=== PATIENT | male | born 1980 | race Caucasian/White ===

== ENCOUNTER 2017-06-18 02:02 | Emergency (ER) | payer OTHER ==
[2017-06-18] MEDS ORDERED: Ketorolac 60 MG/2 ML SDV IM ONE (02:22)
--- NOTE | 2017-06-18 02:27 | EDM.PDOC ---
ED HPI GENERAL MEDICAL PROBLEM - General Stated Complaint: LEFT SHOULDER PAIN Time Seen by Provider: 06/18/17 02:22 Source of Information: Reports: Patient - History of Present Illness INITIAL COMMENTS - FREE TEXT/NARRATIVE: HISTORY AND PHYSICAL: History of present illness: [Patient presents with a history of shoulder pain He complains of actually more of a nerve type pain numbness tingling down to his fingertips on his left arm since been present for one year's unable to sleep due to the discomfort caused by this at this time also has some back and shoulder pain symptoms are worsened with rotation of his arm he denies any injury or trauma Is been able to sleep over the last week due to the pain He has failed [id number] symptomatic therapies, he has been treated by local chiropractor over the last year further symptomology. He has also had MRI performed at [facility] and this was negative for any findings per patient however he did mention that he was referred to the neurology group out of [place] as well which seems there may have been some findings. I recommended he establish primary care provider and either repeat the MRI or get the copy of the MRI and redirected As for tonight I can provide some pain control/management ] Review of systems: As per history of present illness and below otherwise all systems reviewed and negative. Past medical history: As per history of present illness and as reviewed below otherwise noncontributory. Surgical history: As per history of present illness and as reviewed below otherwise noncontributory. Social history: No reported history of drug or alcohol abuse. Family history: As per history of present illness and as reviewed below otherwise noncontributory. Physical exam: HEENT: Atraumatic, normocephalic, pupils reactive, negative for conjunctival pallor or scleral icterus, mucous membranes moist, throat clear, neck supple, nontender, trachea midline. Lungs: Clear to auscultation, breath sounds equal bilaterally, chest nontender. Heart: S1S2, regular, negative for clicks, rubs, or JVD. Abdomen: Soft, nondistended, nontender. Negative for masses or hepatosplenomegaly. Negative for costovertebral tenderness. Pelvis: Stable nontender. Genitourinary: Deferred. Rectal: Deferred. Extremities: Atraumatic, negative for cords or calf pain. Neurovascular unremarkable. Neuro: Awake, alert, oriented. Cranial nerves II through XII unremarkable. Cerebellum unremarkable. Motor and sensory unremarkable throughout. Exam nonfocal. Diagnostics: [] Therapeutics: Toradol 60 IM [place] 5 per 325 one to 2 by mouth every 6 when necessary #10 no refill Flexeril Primary care referral for continued management and referral as needed [] Impression: [Neurogenic pain left upper extremity] Definitive disposition and diagnosis as appropriate pending reevaluation and review of above. - Related Data Allergies Allergy/AdvReac Type Severity Reaction Status Date / Time No Known Allergies Allergy Verified 06/18/17 02:26 Home Meds: Home Meds . [No Known Home Meds] 06/18/17 [History] ED ROS GENERAL - Review of Systems Review Of Systems: ROS reveals no pertinent complaints other than HPI. ED EXAM, GENERAL - Physical Exam Exam: See Below Course - Orders/Labs/Meds Orders: Active Orders 24 hr Category Date Time Status Shoulder Comp Lt [CR] Stat Exams 06/18/17 02:10 Stop Req Departure - Departure Time of Disposition: 02:26 Disposition: Home, Self-Care 01 Condition: Fair Clinical Impression: Muscle spasm, Neurogenic pain - Discharge Information Referrals: PCP,None [Primary Care Provider] - Additional Instructions: Medication as prescribed ER referral for primary care for continued evaluation and treatment and referral as needed Return if symptoms persist or worsen [facility] [address] [place] [address] The following information is given to patients seen in the emergency department who are being discharged to home. This information is to outline your options for follow-up care. We provide all patients seen in our emergency department with a follow-up referral. The need for follow-up, as well as the timing and circumstances, are variable depending upon the specifics of your emergency department visit. If you don't have a primary care physician on staff, we will provide you with a referral. We always advise you to contact your personal physician following an emergency department visit to inform them of the circumstance of the visit and for follow-up with them and/or the need for any referrals to a consulting specialist. The emergency department will also refer you to a specialist when appropriate. This referral assures that you have the opportunity for follow-up care with a specialist. All of these measure are taken in an effort to provide you with optimal care, which includes your follow-up. Under all circumstances we always encourage you to contact your private physician who remains a resource for coordinating your care. When calling for follow-up care, please make the office aware that this follow-up is from your recent emergency room visit. If for any reason you are refused follow-up, please contact the [facility] emergency department at and asked to speak to the emergency department charge nurse. - My Orders Last 24 Hours: My Active Orders 06/18/17 02:10 Shoulder Comp Lt [CR] Stat - Assessment/Plan Last 24 Hours: My Active Orders 06/18/17 02:10 Shoulder Comp Lt [CR] Stat
== END 2017-06-18 02:55 | disposition home or self-care (01) ==
LOC: MW.ED 02:02
DX: M79.2 Neuralgia and neuritis, unspecified (principal); M62.838 Other muscle spasm
CPT/HCPCS: 96372; 99283; J1885